=== PATIENT | male | born 1975 | race American Indian/Alaskan Native ===

== ENCOUNTER 2020-04-19 01:43 | Emergency (ER) | payer OTHER ==
[2020-04-19] MEDS ORDERED: DIPHtheria,PERTUSSIS(ACELL),TETANUS VACCINE/PF 0.5 ML VIAL IM ONE (03:51)
[2020-04-19 13:47] VITALS: BP 132/92
== END 2020-04-19 03:09 | disposition home or self-care (01) ==
LOC: ED 01:43
DX: S61.301A Unspecified open wound of left index finger with damage to nail, initial encounter (principal); W26.0XXA Contact with knife, initial encounter; Y93.89 Activity, other specified; Y92.89 Other specified places as the place of occurrence of the external cause; Y99.8 Other external cause status
CPT/HCPCS: 99282